=== PATIENT | male | born 1960 | race Two or more races ===

== ENCOUNTER 2017-09-29 18:12 | Emergency (ER) | payer OTHER ==
[~2017-09-29] VITALS: Ht 177.8 cm; Wt 74.4 kg
[~2017-09-29 18:12] MED LIST: ALBUPOW26; BECL0.07; FLUT50AE2
[2017-09-29 19:27] LABS: Basophils # (auto) 0.1 uL; Basophils % (auto) 1.2 % (0.0-2.0); Eosinophils # (auto) 0.1 uL; Eosinophils % (auto) 1.2 % (0.0-7.0); Hematocrit 44.7 % (41.0-53.0); Lymphocytes % (auto) 21.2 % (10.0-50.0); Mean Corpuscular Hemoglobin 30.3 pg (28.0-32.0); Mean Corpuscular Hgb Conc. 33.5 g/dL (32.0-36.0); Mean Corpuscular Volume 90.3 fL (80.0-100.0); Monocytes # (auto) 1.1 uL; Monocytes % (auto) 11.6 % (0.0-12.0); Neutrophils # (auto) 6.1 uL; Neutrophils % (auto) 64.8 % (37.0-80.0); Nucleated Red Blood Cells % 0.1 %; Platelet Count (auto) 253 10^3/uL (140-450); Red Blood Cells 4.94 10^6/uL (4.5-5.90); Red Cell Distribution Width 13.3 % (11.8-14.3); White Blood Cell 9.4 10^3/uL (4.4-10.8)
[2017-09-29 19:54] LABS: Albumin 3.5 g/dL (3.4-5.0); BUN/Creatinine Ratio 20.4; Bilirubin, Total 0.5 mg/dL (0.2-1.0); Calcium 8.8 mg/dL (8.5-10.1)
[2017-09-29 21:11] VITALS: BP 121/76
== END 2017-09-29 21:43 | disposition home or self-care (01) ==
LOC: ER 18:12
DX: R07.89 Other chest pain (principal); I10 Essential (primary) hypertension; J44.9 Chronic obstructive pulmonary disease, unspecified; F17.210 Nicotine dependence, cigarettes, uncomplicated
CPT/HCPCS: 36415; 71046; 80053; 85025; 93005

== ENCOUNTER 2018-03-08 19:09 | Emergency (ER) | payer OTHER ==
[~2018-03-08] VITALS: Ht 177.8 cm; Wt 65.8 kg
[2018-03-08 19:22] VITALS: BP 128/72
[2018-03-08 20:35] LABS: Basophils # (auto) 0.1 uL; Eosinophils # (auto) 0 uL; White Blood Cell 14.2 10^3/uL (4.4-10.8)
[2018-03-08 20:38] LABS: Basophils % (auto) 0.7 % (0.0-2.0); Eosinophils % (auto) 0.1 % (0.0-7.0); Hematocrit 35.8 % (41.0-53.0); Lymphocytes # (auto) 2.3 uL; Lymphocytes % (auto) 16.1 % (10.0-50.0); Mean Corpuscular Hemoglobin 28.5 pg (28.0-32.0); Mean Corpuscular Hgb Conc. 33.6 g/dL (32.0-36.0); Mean Corpuscular Volume 84.9 fL (80.0-100.0); Monocytes # (auto) 1.7 uL; Neutrophils # (auto) 10.1 uL; Neutrophils % (auto) 71.1 % (37.0-80.0); Platelet Count (auto) 508 10^3/uL (140-450); Red Blood Cells 4.22 10^6/uL (4.5-5.90); Red Cell Distribution Width 13.5 % (11.8-14.3)
[2018-03-08 20:50] LABS: INR 0.98 (0.9-1.15); Partial Thromboplastin Time 34.6 sec (23.78-33.04); Prothrombin Time 10.5 sec (9.27-12.13)
[2018-03-08 21:01] LABS: Alanine Aminotransferase 14 U/L (16-61); Albumin 2.4 g/dL (3.4-5.0); Alkaline Phosphatase 91 U/L (45-117); Anion Gap 10 (5-15); Aspartate Aminotransferase 21 U/L (15-37); BUN/Creatinine Ratio 8.8; Bilirubin, Total 0.7 mg/dL (0.2-1.0); Blood Urea Nitrogen 7 mg/dL (7-18); Calcium 8.1 mg/dL (8.5-10.1); Carbon Dioxide 26 mmol/L (21-32); Chloride 103 mmol/L (98-107); GFR African American 127 mL/min; GFR Non-African American 105 mL/min; Glucose 141 mg/dL (74-106); Sodium 139 mmol/L (136-145); Total Protein 7.5 g/dL (6.4-8.2)
[2018-03-08 21:08] LABS: Potassium 2.5 mmol/L (3.5-5.1)
== END 2018-03-09 01:00 | disposition left against medical advice (07) ==
LOC: ER 19:09 → EDBD 19:09 → ER 03-09 01:00
DX: R53.1 Weakness (principal); Z53.21 Procedure and treatment not carried out due to patient leaving prior to being seen by health care provider
CPT/HCPCS: 36415; 70450; 71045; 80053; 83880; 84484; 85025; 85610; 85730; 93005

== ENCOUNTER 2018-05-11 07:33 | Emergency (ER) | payer OTHER ==
[~2018-05-11] VITALS: Ht 177.8 cm; Wt 57.2 kg
[2018-05-11 08:20] LABS: Basophils # (auto) 0.1 uL; Eosinophils # (auto) 0.1 uL; Eosinophils % (auto) 0.6 % (0.0-7.0); Lymphocytes # (auto) 1.8 uL; Red Cell Distribution Width 14.9 % (11.8-14.3)
[2018-05-11 08:22] LABS: Basophils % (auto) 0.5 % (0.0-2.0); Hematocrit 33.2 % (41.0-53.0); Hemoglobin 10.7 g/dL (13.5-17.5); Lymphocytes % (auto) 15.9 % (10.0-50.0); Mean Corpuscular Hemoglobin 27.3 pg (28.0-32.0); Mean Corpuscular Hgb Conc. 32.4 g/dL (32.0-36.0); Mean Corpuscular Volume 84.3 fL (80.0-100.0); Monocytes # (auto) 1.4 uL; Neutrophils # (auto) 7.8 uL; Platelet Count (auto) 622 10^3/uL (140-450); Red Blood Cells 3.94 10^6/uL (4.5-5.90); White Blood Cell 11.1 10^3/uL (4.4-10.8)
[2018-05-11 08:30] LABS: INR 1.02 (0.9-1.15); Partial Thromboplastin Time 32.9 sec (23.78-33.04); Prothrombin Time 10.9 sec (9.27-12.13)
[2018-05-11 08:43] LABS: Alanine Aminotransferase 11 U/L (16-61); Albumin 2.2 g/dL (3.4-5.0); Alkaline Phosphatase 94 U/L (45-117); Anion Gap 6 (5-15); Aspartate Aminotransferase 25 U/L (15-37); BUN/Creatinine Ratio 12.3; Bilirubin, Total 0.6 mg/dL (0.2-1.0); Blood Urea Nitrogen 8 mg/dL (7-18); Calcium 8.1 mg/dL (8.5-10.1); Carbon Dioxide 26 mmol/L (21-32); Chloride 104 mmol/L (98-107); GFR African American 162 mL/min; GFR Non-African American 134 mL/min; Glucose 94 mg/dL (74-106); Magnesium 2.6 mg/dL (1.6-2.6); Potassium 3.8 mmol/L (3.5-5.1); Sodium 136 mmol/L (136-145); Total Protein 7.1 g/dL (6.4-8.2)
[2018-05-11 09:36] LABS: Urine WBC None Seen /hpf (0 - 3)
[2018-05-11 09:55] LABS: Urine Bacteria NONE SEEN /hpf (None Seen); Urine Blood Negative /uL (Negative); Urine Specific Gravity 1.012 (1.001-1.035)
[2018-05-11 10:02] LABS: Alcohol, Urine < 3.0 mg/dL (0-5); Amphetamine Screen, Urine NEGATIVE (NEGATIVE); Barbiturate Scree,Urine NEGATIVE (NEGATIVE); Benzodiazephine Screen, Urine NEGATIVE (NEGATIVE); Cannabinoid Screen, Urine NEGATIVE (NEGATIVE); Cocaine Screen, Urine NEGATIVE (NEGATIVE); Opiate Scree,Urine NEGATIVE (NEGATIVE); Phencyclidine Screen, Urine NEGATIVE (NEGATIVE)
[2018-05-11] MEDS ORDERED: IOHEXOL 350 MG/ML 100ML IJ ONE (15:22)
[2018-05-11 15:45] VITALS: BP 95/54
== END 2018-05-11 17:37 | disposition home or self-care (01) ==
LOC: EDBD 07:33 → ER 07:33
DX: C80.1 Malignant (primary) neoplasm, unspecified (principal); C78.02 Secondary malignant neoplasm of left lung; E43 Unspecified severe protein-calorie malnutrition; J44.9 Chronic obstructive pulmonary disease, unspecified; I10 Essential (primary) hypertension; Z87.891 Personal history of nicotine dependence; Z68.1 Body mass index [BMI] 19.9 or less, adult; Z86.19 Personal history of other infectious and parasitic diseases
CPT/HCPCS: 36415; 71046; 71275; 74176; 80053; 80307; 81001; 83735; 83880; 84484; 85025; 85610; 85730; 93005; 99285; Q9967

== ENCOUNTER 2018-05-26 18:11 | Inpatient (IN) | payer OTHER ==
[~2018-05-26] VITALS: Ht 177.8 cm; Wt 43.3 kg
[2018-05-26 19:15] LABS: Eosinophils # (auto) 0 uL; Hematocrit 34.9 % (41.0-53.0); Hemoglobin 11.3 g/dL (13.5-17.5); Monocytes # (auto) 1.4 uL; Monocytes % (auto) 8.5 % (0.0-12.0)
[2018-05-26 19:17] LABS: Basophils # (auto) 0.5 uL; Basophils % (auto) 2.9 % (0.0-2.0); Lymphocytes # (auto) 1.5 uL; Lymphocytes % (auto) 9.5 % (10.0-50.0); Mean Corpuscular Hgb Conc. 32.3 g/dL (32.0-36.0); Mean Corpuscular Volume 83.5 fL (80.0-100.0); Neutrophils % (auto) 79.1 % (37.0-80.0); Platelet Count (auto) 581 10^3/uL (140-450); Red Blood Cells 4.18 10^6/uL (4.5-5.90); Red Cell Distribution Width 15.5 % (11.8-14.3); White Blood Cell 16.4 10^3/uL (4.4-10.8)
[2018-05-26 19:22] LABS: Albumin 2.1 g/dL (3.4-5.0); Anion Gap 8 (5-15); Aspartate Aminotransferase 28 U/L (15-37); Blood Urea Nitrogen 9 mg/dL (7-18); Calcium 7.6 mg/dL (8.5-10.1); Carbon Dioxide 25 mmol/L (21-32); Chloride 102 mmol/L (98-107); GFR African American 177 mL/min; GFR Non-African American 147 mL/min; Glucose 97 mg/dL (74-106); Magnesium 1.9 mg/dL (1.6-2.6); Potassium 3.6 mmol/L (3.5-5.1); Sodium 135 mmol/L (136-145)
[2018-05-26 19:27] LABS: Alanine Aminotransferase 11 U/L (16-61); Alkaline Phosphatase 87 U/L (45-117); Bilirubin, Total 0.7 mg/dL (0.2-1.0); Total Protein 6.8 g/dL (6.4-8.2)
[2018-05-26 20:21] LABS: INR 1.04 (0.9-1.15); Partial Thromboplastin Time 33.8 sec (23.78-33.04); Prothrombin Time 11.1 sec (9.27-12.13)
[2018-05-26] MEDS ORDERED: ONDANSETRON HCL 4 MG/2 ML VIAL IV ONE (21:15)
[2018-05-26] MEDS ORDERED: MORPHINE SULF INJ 2 MG/ML SYRINGE 1ML ONE (21:16)
[2018-05-26] MEDS: MORPHINE SULF INJ 2 MG/ML SYRINGE 1ML IV ONE ×2 (21:21→21:43)
[2018-05-26] MEDS ORDERED: cefTRIAXone 1GM/10ml IVPUSH 10 ML IV ONE (21:30)
[2018-05-27] VITALS (7 sets, daily range): BP systolic 99–155; BP diastolic 58–80
[2018-05-27] MEDS ORDERED: IPRATROPIUM BROM 0.5 MG/2.5ML INH SOL NEB ONE (00:15)
[2018-05-27] MEDS ORDERED: ALBUTEROL SULF 2.5 MG/0.5ML(0.5%) NEB SOLN NEB ONE (00:15)
[2018-05-27] MEDS ORDERED: IPRATROPIUM BROM 0.5 MG/2.5ML INH SOL ONE (00:28)
[2018-05-27] MEDS ORDERED: ALBUTEROL SULF 2.5 MG/0.5ML(0.5%) NEB SOLN ONE (00:28)
[2018-05-27] MEDS ORDERED: HYDROmorphone HCL 2 MG/ML VL ONE (01:09)
[2018-05-27] MEDS: HYDROmorphone HCL 2 MG/ML VL IV PRN ×4 (01:11→19:01)
[2018-05-27] MEDS: LEVOFLOXACIN 500MG 100 ML IV SCH ×2 (01:44→21:27)
[2018-05-27] MEDS: HYDROcodone-ACET 5/325MG TAB PO PRN ×2 (03:12→20:51)
[2018-05-27] MEDS ORDERED: HYDR-4683 PO (03:48)
[2018-05-27] MEDS ORDERED: MORP60TA25 PO (03:48)
[2018-05-27 06:43] LABS: Urine Bacteria MOD /hpf (None Seen); Urine Blood 2+ /uL (Negative); Urine Specific Gravity 1.019 (1.001-1.035); Urine WBC 7 /hpf (0 - 3)
[2018-05-27] MEDS: ALBUTEROL SULF 2.5 MG/0.5ML(0.5%) NEB SOLN NEB SCH ×4 (07:08→23:37)
[2018-05-27] MEDS: IPRATROPIUM BROM 0.5 MG/2.5ML INH SOL NEB SCH ×4 (07:08→23:37)
[2018-05-27] MEDS ORDERED: TEMAZEPAM 15 MG CAP PO PRN (10:30)
[2018-05-27] MEDS: ONDANSETRON HCL 4 MG/2 ML VIAL IV PRN ×2 (13:37→19:02)
[2018-05-28] VITALS (7 sets, daily range): BP systolic 96–122; BP diastolic 58–74
[2018-05-28] MEDS: ONDANSETRON HCL 4 MG/2 ML VIAL IV PRN ×2 (00:43→17:55)
[2018-05-28] MEDS: HYDROmorphone HCL 2 MG/ML VL IV PRN ×5 (00:44→17:43)
[2018-05-28] MEDS: IPRATROPIUM BROM 0.5 MG/2.5ML INH SOL NEB SCH ×3 (06:33→19:20)
[2018-05-28] MEDS: ALBUTEROL SULF 2.5 MG/0.5ML(0.5%) NEB SOLN NEB SCH ×3 (06:34→19:20)
[2018-05-28] MEDS: HYDROcodone-ACET 5/325MG TAB PO PRN ×4 (06:45→20:23)
[2018-05-28 07:07] LABS: Basophils # (auto) 0.1 uL; Eosinophils # (auto) 0 uL; Eosinophils % (auto) 0.3 % (0.0-7.0); Hemoglobin 11.6 g/dL (13.5-17.5); Lymphocytes # (auto) 1.2 uL
[2018-05-28 07:09] LABS: Basophils % (auto) 0.4 % (0.0-2.0); Hematocrit 36.2 % (41.0-53.0); Mean Corpuscular Hgb Conc. 32.1 g/dL (32.0-36.0); Mean Corpuscular Volume 84.2 fL (80.0-100.0); Monocytes # (auto) 1.4 uL; Monocytes % (auto) 9.3 % (0.0-12.0); Neutrophils # (auto) 12.4 uL; Platelet Count (auto) 547 10^3/uL (140-450); Red Cell Distribution Width 15.3 % (11.8-14.3); White Blood Cell 15.2 10^3/uL (4.4-10.8)
[2018-05-28 07:51] LABS: BUN/Creatinine Ratio 21.5; Bilirubin, Total 0.6 mg/dL (0.2-1.0); Potassium 4.3 mmol/L (3.5-5.1); Total Protein 6.5 g/dL (6.4-8.2)
[2018-05-28] MEDS: LEVOFLOXACIN 500MG 100 ML IV SCH (22:05)
[2018-05-29] VITALS (7 sets, daily range): BP systolic 102–150; BP diastolic 61–72
[2018-05-29] MEDS: ONDANSETRON HCL 4 MG/2 ML VIAL IV PRN ×2 (00:42→06:39)
[2018-05-29] MEDS: HYDROmorphone HCL 2 MG/ML VL IV PRN ×4 (00:42→15:53)
[2018-05-29] MEDS: IPRATROPIUM BROM 0.5 MG/2.5ML INH SOL NEB SCH ×3 (07:03→18:05)
[2018-05-29] MEDS: ALBUTEROL SULF 2.5 MG/0.5ML(0.5%) NEB SOLN NEB SCH ×3 (07:03→18:05)
[2018-05-29 07:12] LABS: Basophils # (auto) 0.1 uL; Eosinophils # (auto) 0.1 uL; Hemoglobin 11.5 g/dL (13.5-17.5); Neutrophils # (auto) 10.1 uL
[2018-05-29 07:15] LABS: Basophils % (auto) 0.6 % (0.0-2.0); Eosinophils % (auto) 0.6 % (0.0-7.0); Hematocrit 34.2 % (41.0-53.0); Lymphocytes # (auto) 1.5 uL; Lymphocytes % (auto) 11.9 % (10.0-50.0); Mean Corpuscular Hemoglobin 27.8 pg (28.0-32.0); Mean Corpuscular Hgb Conc. 33.4 g/dL (32.0-36.0); Mean Corpuscular Volume 83.2 fL (80.0-100.0); Monocytes % (auto) 8.1 % (0.0-12.0); Neutrophils % (auto) 78.8 % (37.0-80.0); Platelet Count (auto) 570 10^3/uL (140-450); Red Blood Cells 4.11 10^6/uL (4.5-5.90); Red Cell Distribution Width 15.2 % (11.8-14.3); White Blood Cell 12.7 10^3/uL (4.4-10.8)
[2018-05-29 07:25] LABS: Calcium 8.2 mg/dL (8.5-10.1); Potassium 4.2 mmol/L (3.5-5.1)
[2018-05-29] MEDS: HYDROcodone-ACET 5/325MG TAB PO PRN (09:51)
[2018-05-29] MEDS: MORPHINE SULF 30 mg ER tab PO SCH ×2 (15:53→21:49)
[2018-05-29] MEDS: LEVOFLOXACIN 500MG 100 ML IV SCH (21:48)
[2018-05-30] VITALS (7 sets, daily range): BP systolic 92–121; BP diastolic 51–68
[2018-05-30] MEDS: IPRATROPIUM BROM 0.5 MG/2.5ML INH SOL NEB SCH ×4 (00:03→18:31)
[2018-05-30] MEDS: ALBUTEROL SULF 2.5 MG/0.5ML(0.5%) NEB SOLN NEB SCH ×4 (00:03→18:31)
[2018-05-30] MEDS: HYDROmorphone HCL 2 MG/ML VL IV PRN ×3 (00:44→16:51)
[2018-05-30] MEDS: HYDROcodone-ACET 5/325MG TAB PO PRN (04:03)
[2018-05-30 07:04] LABS: Eosinophils # (auto) 0.1 uL; Monocytes # (auto) 1.4 uL
[2018-05-30 07:06] LABS: Basophils # (auto) 0.6 uL; Basophils % (auto) 4.1 % (0.0-2.0); Eosinophils % (auto) 0.5 % (0.0-7.0); Hematocrit 32.5 % (41.0-53.0); Hemoglobin 10.7 g/dL (13.5-17.5); Lymphocytes # (auto) 1.7 uL; Lymphocytes % (auto) 12.2 % (10.0-50.0); Mean Corpuscular Hemoglobin 27.5 pg (28.0-32.0); Mean Corpuscular Hgb Conc. 33.1 g/dL (32.0-36.0); Mean Corpuscular Volume 83.1 fL (80.0-100.0); Monocytes % (auto) 10.2 % (0.0-12.0); Neutrophils # (auto) 10.3 uL; Platelet Count (auto) 576 10^3/uL (140-450); Red Blood Cells 3.91 10^6/uL (4.5-5.90); Red Cell Distribution Width 15.2 % (11.8-14.3); White Blood Cell 14.1 10^3/uL (4.4-10.8)
[2018-05-30 07:25] LABS: Albumin 1.9 g/dL (3.4-5.0); Calcium 7.8 mg/dL (8.5-10.1)
[2018-05-30 07:27] LABS: BUN/Creatinine Ratio 18.8
[2018-05-30 07:29] LABS: Bilirubin, Total 0.5 mg/dL (0.2-1.0); Total Protein 6.5 g/dL (6.4-8.2)
[2018-05-30] MEDS: MORPHINE SULF 30 mg ER tab PO SCH ×2 (10:48→22:11)
[2018-05-30] MEDS ORDERED: Pro-Stat SF 30ml Vanilla PO SCH (22:00)
[2018-05-30] MEDS: LEVOFLOXACIN 500MG 100 ML IV SCH (22:06)
[2018-05-30] MEDS: Ensure Enlive Chocolate 8oz Bottle PO SCH (22:10)
[2018-05-31] MEDS: HYDROmorphone HCL 2 MG/ML VL IV PRN ×4 (00:24→14:55)
[2018-05-31] MEDS: ONDANSETRON HCL 4 MG/2 ML VIAL IV PRN (01:05)
[2018-05-31 05:00] VITALS: BP 107/70
[2018-05-31] MEDS: IPRATROPIUM BROM 0.5 MG/2.5ML INH SOL NEB SCH ×5 (05:51→21:50)
[2018-05-31] MEDS: ALBUTEROL SULF 2.5 MG/0.5ML(0.5%) NEB SOLN NEB SCH ×5 (05:51→21:50)
[2018-05-31 06:50] LABS: Basophils # (auto) 0.1 uL; Eosinophils # (auto) 0.1 uL; Eosinophils % (auto) 0.5 % (0.0-7.0)
[2018-05-31 06:54] LABS: Basophils % (auto) 0.9 % (0.0-2.0); Hematocrit 35.1 % (41.0-53.0); Hemoglobin 11.4 g/dL (13.5-17.5); Lymphocytes # (auto) 2.1 uL; Lymphocytes % (auto) 14.9 % (10.0-50.0); Mean Corpuscular Hemoglobin 27.1 pg (28.0-32.0); Mean Corpuscular Hgb Conc. 32.5 g/dL (32.0-36.0); Mean Corpuscular Volume 83.5 fL (80.0-100.0); Monocytes # (auto) 1.5 uL; Monocytes % (auto) 10.6 % (0.0-12.0); Neutrophils # (auto) 10.5 uL; Neutrophils % (auto) 73.1 % (37.0-80.0); Platelet Count (auto) 593 10^3/uL (140-450); Red Cell Distribution Width 15.5 % (11.8-14.3); White Blood Cell 14.4 10^3/uL (4.4-10.8)
[2018-05-31 07:03] LABS: INR 1.02 (0.9-1.15); Prothrombin Time 10.9 sec (9.27-12.13)
[2018-05-31 07:13] LABS: BUN/Creatinine Ratio 24.2; Bilirubin, Total 0.6 mg/dL (0.2-1.0); Calcium 8.4 mg/dL (8.5-10.1); Potassium 4.3 mmol/L (3.5-5.1)
[2018-05-31 09:00] VITALS: BP 91/55
[2018-05-31] MEDS: Ensure Enlive Chocolate 8oz Bottle PO SCH ×3 (09:47→18:00)
[2018-05-31] MEDS: MORPHINE SULF 30 mg ER tab PO SCH ×2 (10:54→21:15)
[2018-05-31] MEDS: Pro-Stat SF 30ml Vanilla PO SCH ×2 (11:00→18:00)
[2018-05-31 13:07] VITALS: BP 89/55
[2018-05-31 16:43] VITALS: BP 99/62
[2018-05-31 20:00] VITALS: BP 136/50
[2018-05-31] MEDS: LEVOFLOXACIN 500MG 100 ML IV SCH (21:20)
[2018-05-31 22:00] VITALS: BP 115/53
[2018-06-01] VITALS (7 sets, daily range): BP systolic 84–109; BP diastolic 47–71
[2018-06-01] MEDS: HYDROmorphone HCL 2 MG/ML VL IV PRN ×4 (00:51→18:00)
[2018-06-01] MEDS: ALBUTEROL SULF 2.5 MG/0.5ML(0.5%) NEB SOLN NEB SCH ×3 (06:17→19:15)
[2018-06-01] MEDS: IPRATROPIUM BROM 0.5 MG/2.5ML INH SOL NEB SCH ×3 (06:17→19:15)
[2018-06-01 07:04] LABS: Basophils # (auto) 0.2 uL; Eosinophils # (auto) 0.1 uL
[2018-06-01 07:12] LABS: Basophils % (auto) 1.2 % (0.0-2.0); Eosinophils % (auto) 0.6 % (0.0-7.0); Hemoglobin 11.1 g/dL (13.5-17.5); Lymphocytes # (auto) 2.2 uL; Lymphocytes % (auto) 15.2 % (10.0-50.0); Mean Corpuscular Hemoglobin 27.1 pg (28.0-32.0); Mean Corpuscular Hgb Conc. 32.8 g/dL (32.0-36.0); Mean Corpuscular Volume 82.8 fL (80.0-100.0); Monocytes # (auto) 1.4 uL; Monocytes % (auto) 9.5 % (0.0-12.0); Neutrophils # (auto) 10.9 uL; Neutrophils % (auto) 73.5 % (37.0-80.0); Nucleated Red Blood Cells % 0.1 %; Platelet Count (auto) 600 10^3/uL (140-450); Red Blood Cells 4.11 10^6/uL (4.5-5.90); Red Cell Distribution Width 15.2 % (11.8-14.3); White Blood Cell 14.8 10^3/uL (4.4-10.8)
[2018-06-01 07:25] LABS: Albumin 2.1 g/dL (3.4-5.0); BUN/Creatinine Ratio 27.3; Bilirubin, Total 0.5 mg/dL (0.2-1.0); Calcium 8.3 mg/dL (8.5-10.1); Potassium 4.5 mmol/L (3.5-5.1); Total Protein 6.8 g/dL (6.4-8.2)
[2018-06-01] MEDS: Ensure Enlive Chocolate 8oz Bottle PO SCH ×3 (08:00→20:28)
[2018-06-01] MEDS: Pro-Stat SF 30ml Vanilla PO SCH ×2 (08:00→20:29)
[2018-06-01] MEDS: AZITHROMYCIN 250 MG TAB PO SCH (10:06)
[2018-06-01] MEDS: MORPHINE SULF 30 mg ER tab PO SCH ×2 (10:06→21:13)
[2018-06-01] MEDS: ONDANSETRON HCL 4 MG/2 ML VIAL IV PRN (11:54)
[2018-06-01] MEDS: DOCUSATE SOD 100 MG CAP PO PRN (11:54)
[2018-06-01] MEDS: ACETAMINOPHEN 500 MG TAB PO PRN (14:48)
[2018-06-01] MEDS: LEVOFLOXACIN 500MG 100 ML IV SCH (21:13)
[2018-06-02] MEDS: HYDROmorphone HCL 2 MG/ML VL IV PRN ×3 (02:52→16:41)
[2018-06-02 05:00] VITALS: BP 88/52
[2018-06-02] MEDS: ALBUTEROL SULF 2.5 MG/0.5ML(0.5%) NEB SOLN NEB SCH ×4 (06:20→18:42)
[2018-06-02] MEDS: IPRATROPIUM BROM 0.5 MG/2.5ML INH SOL NEB SCH ×4 (06:20→18:42)
[2018-06-02 06:21] LABS: Basophils # (auto) 0.1 uL; White Blood Cell 13.7 10^3/uL (4.4-10.8)
[2018-06-02 06:23] LABS: Basophils % (auto) 0.9 % (0.0-2.0); Eosinophils # (auto) 0.2 uL; Eosinophils % (auto) 1.1 % (0.0-7.0); Hematocrit 31.7 % (41.0-53.0); Hemoglobin 10.7 g/dL (13.5-17.5); Lymphocytes # (auto) 1.9 uL; Lymphocytes % (auto) 13.7 % (10.0-50.0); Mean Corpuscular Hemoglobin 28.1 pg (28.0-32.0); Mean Corpuscular Hgb Conc. 33.9 g/dL (32.0-36.0); Monocytes # (auto) 1.5 uL; Monocytes % (auto) 10.8 % (0.0-12.0); Neutrophils # (auto) 10.1 uL; Neutrophils % (auto) 73.5 % (37.0-80.0); Platelet Count (auto) 611 10^3/uL (140-450); Red Blood Cells 3.81 10^6/uL (4.5-5.90)
[2018-06-02 06:33] LABS: Albumin 1.9 g/dL (3.4-5.0); BUN/Creatinine Ratio 30.5; Calcium 8.1 mg/dL (8.5-10.1)
[2018-06-02 06:46] LABS: Bilirubin, Total 0.4 mg/dL (0.2-1.0); Total Protein 6.6 g/dL (6.4-8.2)
[2018-06-02] MEDS: Ensure Enlive Chocolate 8oz Bottle PO SCH ×3 (08:00→21:06)
[2018-06-02] MEDS: Pro-Stat SF 30ml Vanilla PO SCH ×2 (08:00→21:07)
[2018-06-02 09:00] VITALS: BP 105/56
[2018-06-02] MEDS: AZITHROMYCIN 250 MG TAB PO SCH (10:37)
[2018-06-02] MEDS: MORPHINE SULF 30 mg ER tab PO SCH ×2 (10:38→21:25)
[2018-06-02 13:00] VITALS: BP 104/64
[2018-06-02 17:00] VITALS: BP 114/47
[2018-06-02 20:00] VITALS: BP 93/47
[2018-06-02] MEDS: LEVOFLOXACIN 500MG 100 ML IV SCH (21:25)
[2018-06-02 22:00] VITALS: BP 107/64
[2018-06-03] VITALS (7 sets, daily range): BP systolic 85–107; BP diastolic 55–74
[2018-06-03] MEDS: ALBUTEROL SULF 2.5 MG/0.5ML(0.5%) NEB SOLN NEB SCH ×4 (02:16→19:45)
[2018-06-03] MEDS: IPRATROPIUM BROM 0.5 MG/2.5ML INH SOL NEB SCH ×4 (02:16→19:45)
[2018-06-03] MEDS: HYDROmorphone HCL 2 MG/ML VL IV PRN ×4 (04:07→22:22)
[2018-06-03] MEDS: ACETAMINOPHEN 500 MG TAB PO PRN (06:20)
[2018-06-03] MEDS: Pro-Stat SF 30ml Vanilla PO SCH ×2 (08:00→18:07)
[2018-06-03] MEDS: Ensure Enlive Chocolate 8oz Bottle PO SCH ×3 (09:58→18:07)
[2018-06-03] MEDS: MORPHINE SULF 30 mg ER tab PO SCH ×2 (10:59→22:21)
[2018-06-03] MEDS: AZITHROMYCIN 250 MG TAB PO SCH (10:59)
[2018-06-03] MEDS: DOCUSATE SOD 100 MG CAP PO PRN (17:18)
[2018-06-03] MEDS: LEVOFLOXACIN 500MG 100 ML IV SCH (22:21)
[2018-06-04] VITALS (7 sets, daily range): BP systolic 82–97; BP diastolic 43–61
[2018-06-04] MEDS: HYDROmorphone HCL 2 MG/ML VL IV PRN ×2 (04:45→08:58)
[2018-06-04] MEDS: ALBUTEROL SULF 2.5 MG/0.5ML(0.5%) NEB SOLN NEB SCH ×3 (06:30→18:14)
[2018-06-04] MEDS: IPRATROPIUM BROM 0.5 MG/2.5ML INH SOL NEB SCH ×3 (06:30→18:14)
[2018-06-04 06:55] LABS: Basophils # (auto) 0.4 uL; Eosinophils # (auto) 0.1 uL; Hemoglobin 11.8 g/dL (13.5-17.5)
[2018-06-04 06:58] LABS: Basophils % (auto) 2.4 % (0.0-2.0); Eosinophils % (auto) 0.6 % (0.0-7.0); Hematocrit 36.6 % (41.0-53.0); Lymphocytes # (auto) 2.2 uL; Lymphocytes % (auto) 13.5 % (10.0-50.0); Mean Corpuscular Hemoglobin 26.9 pg (28.0-32.0); Mean Corpuscular Hgb Conc. 32.3 g/dL (32.0-36.0); Mean Corpuscular Volume 83.2 fL (80.0-100.0); Monocytes # (auto) 1.6 uL; Neutrophils # (auto) 12.2 uL; Neutrophils % (auto) 73.5 % (37.0-80.0); Platelet Count (auto) 671 10^3/uL (140-450); Red Cell Distribution Width 15.2 % (11.8-14.3); White Blood Cell 16.5 10^3/uL (4.4-10.8)
[2018-06-04 07:10] LABS: Albumin 2.2 g/dL (3.4-5.0); Calcium 8.4 mg/dL (8.5-10.1); Potassium 4.9 mmol/L (3.5-5.1)
[2018-06-04 07:11] LABS: BUN/Creatinine Ratio 22.5
[2018-06-04 07:14] LABS: Bilirubin, Total 0.6 mg/dL (0.2-1.0); Total Protein 7.8 g/dL (6.4-8.2)
[2018-06-04] MEDS: Ensure Enlive Chocolate 8oz Bottle PO SCH ×3 (08:00→18:28)
[2018-06-04] MEDS: Pro-Stat SF 30ml Vanilla PO SCH ×2 (08:00→18:28)
[2018-06-04] MEDS: AZITHROMYCIN 250 MG TAB PO SCH (10:19)
[2018-06-04] MEDS: MORPHINE SULF 30 mg ER tab PO SCH ×2 (10:19→22:02)
[2018-06-04] MEDS ORDERED: fentaNYL CITRATE 100 MCG/2 ML VL ONE (12:56)
[2018-06-04] MEDS ORDERED: MIDAZOLAM HCL 1MG/1ML-2 ML VIAL ONE (12:56)
[2018-06-04] MEDS: HYDROcodone-ACET 10/325MG TAB PO PRN ×2 (13:00→22:03)
[2018-06-04] MEDS ORDERED: LIDOCAINE 2% (LOCAL ANESTH.) PF 5ml SDV ONE (13:16)
[2018-06-04 16:08] LABS: % Iron Saturation 10.5 % (20-55)
[2018-06-04] MEDS: LEVOFLOXACIN 500MG 100 ML IV SCH (22:03)
[2018-06-05] VITALS (7 sets, daily range): BP systolic 95–130; BP diastolic 50–80
[2018-06-05] MEDS: HYDROmorphone HCL 2 MG/ML VL IV PRN ×2 (00:47→16:46)
[2018-06-05] MEDS: HYDROcodone-ACET 10/325MG TAB PO PRN ×2 (04:43→19:47)
[2018-06-05 07:13] LABS: Basophils # (auto) 0.1 uL; Basophils % (auto) 0.9 % (0.0-2.0); Eosinophils # (auto) 0.1 uL; Eosinophils % (auto) 0.5 % (0.0-7.0); Hematocrit 38.8 % (41.0-53.0); Hemoglobin 12.7 g/dL (13.5-17.5); Lymphocytes # (auto) 1.9 uL; Lymphocytes % (auto) 14.2 % (10.0-50.0); Mean Corpuscular Hemoglobin 27.3 pg (28.0-32.0); Mean Corpuscular Hgb Conc. 32.8 g/dL (32.0-36.0); Mean Corpuscular Volume 83.2 fL (80.0-100.0); Monocytes # (auto) 1.5 uL; Monocytes % (auto) 10.6 % (0.0-12.0); Neutrophils # (auto) 10.1 uL; Neutrophils % (auto) 73.8 % (37.0-80.0); Nucleated Red Blood Cells % 0.1 %; Platelet Count (auto) 726 10^3/uL (140-450); Red Blood Cells 4.66 10^6/uL (4.5-5.90); Red Cell Distribution Width 15.1 % (11.8-14.3); White Blood Cell 13.7 10^3/uL (4.4-10.8)
[2018-06-05] MEDS: IPRATROPIUM BROM 0.5 MG/2.5ML INH SOL NEB SCH ×4 (07:28→18:53)
[2018-06-05] MEDS: ALBUTEROL SULF 2.5 MG/0.5ML(0.5%) NEB SOLN NEB SCH ×4 (07:28→18:53)
[2018-06-05 07:36] LABS: Albumin 2.4 g/dL (3.4-5.0); Bilirubin, Total 0.6 mg/dL (0.2-1.0); Calcium 8.9 mg/dL (8.5-10.1); Potassium 4.1 mmol/L (3.5-5.1); Total Protein 8.2 g/dL (6.4-8.2)
[2018-06-05] MEDS: Pro-Stat SF 30ml Vanilla PO SCH ×2 (08:00→18:11)
[2018-06-05] MEDS: Ensure Enlive Chocolate 8oz Bottle PO SCH ×3 (08:00→18:11)
[2018-06-05] MEDS: AZITHROMYCIN 250 MG TAB PO SCH (10:36)
[2018-06-05] MEDS: MORPHINE SULF 30 mg ER tab PO SCH ×2 (10:37→21:34)
[2018-06-05] MEDS: LEVOFLOXACIN 500MG 100 ML IV SCH (21:34)
[2018-06-06] MEDS: ALBUTEROL SULF 2.5 MG/0.5ML(0.5%) NEB SOLN NEB SCH ×4 (00:25→19:25)
[2018-06-06] MEDS: IPRATROPIUM BROM 0.5 MG/2.5ML INH SOL NEB SCH ×4 (00:25→19:25)
[2018-06-06] MEDS: HYDROmorphone HCL 2 MG/ML VL IV PRN ×4 (01:28→23:50)
[2018-06-06 05:00] VITALS: BP 105/69
[2018-06-06 09:00] VITALS: BP 111/59
[2018-06-06] MEDS: Ensure Enlive Chocolate 8oz Bottle PO SCH ×3 (10:34→18:02)
[2018-06-06] MEDS: Pro-Stat SF 30ml Vanilla PO SCH ×2 (10:35→18:02)
[2018-06-06] MEDS: AZITHROMYCIN 250 MG TAB PO SCH (10:36)
[2018-06-06] MEDS: MORPHINE SULF 30 mg ER tab PO SCH ×2 (10:36→22:24)
[2018-06-06] MEDS: DOCUSATE SOD 100 MG CAP PO PRN ×2 (10:44→15:18)
[2018-06-06] MEDS: SODIUM FERR GLUC 62.5MG/5ML 125 MG in SODIUM CHL 0.9% 100 ML IV SCH (11:51)
[2018-06-06 12:39] VITALS: BP 97/58
[2018-06-06] MEDS: HYDROcodone-ACET 10/325MG TAB PO PRN ×3 (12:45→23:50)
[2018-06-06 17:00] VITALS: BP 87/63
[2018-06-06 22:00] VITALS: BP 107/76
[2018-06-06] MEDS: LEVOFLOXACIN 500MG 100 ML IV SCH (22:23)
[2018-06-07] MEDS: HYDROmorphone HCL 2 MG/ML VL IV PRN ×3 (03:41→21:17)
[2018-06-07 05:00] VITALS: BP 112/69
[2018-06-07] MEDS: IPRATROPIUM BROM 0.5 MG/2.5ML INH SOL NEB SCH ×4 (06:05→18:00)
[2018-06-07] MEDS: ALBUTEROL SULF 2.5 MG/0.5ML(0.5%) NEB SOLN NEB SCH ×4 (06:05→18:00)
[2018-06-07] MEDS: Ensure Enlive Chocolate 8oz Bottle PO SCH ×3 (08:59→18:01)
[2018-06-07 09:00] VITALS: BP 85/58
[2018-06-07] MEDS: Pro-Stat SF 30ml Vanilla PO SCH ×2 (09:00→18:01)
[2018-06-07] MEDS: MORPHINE SULF 30 mg ER tab PO SCH ×2 (09:00→22:54)
[2018-06-07] MEDS: AZITHROMYCIN 250 MG TAB PO SCH (09:00)
[2018-06-07] MEDS: DOCUSATE SOD 100 MG CAP PO PRN (09:35)
[2018-06-07 12:46] VITALS: BP 84/54
[2018-06-07] MEDS: SODIUM FERR GLUC 62.5MG/5ML 125 MG in SODIUM CHL 0.9% 100 ML IV SCH (13:04)
[2018-06-07 17:00] VITALS: BP 95/55
[2018-06-07] MEDS: HYDROcodone-ACET 10/325MG TAB PO PRN (18:50)
[2018-06-07 19:29] VITALS: BP 95/55
[2018-06-07 22:00] VITALS: BP 109/70
[2018-06-07] MEDS: LEVOFLOXACIN 500MG 100 ML IV SCH (22:54)
[2018-06-08] MEDS: HYDROcodone-ACET 10/325MG TAB PO PRN ×2 (00:55→14:00)
[2018-06-08] MEDS: HYDROmorphone HCL 2 MG/ML VL IV PRN ×2 (03:30→07:16)
[2018-06-08 05:00] VITALS: BP 100/74
[2018-06-08] MEDS: ALBUTEROL SULF 2.5 MG/0.5ML(0.5%) NEB SOLN NEB SCH ×3 (06:30→12:13)
[2018-06-08] MEDS: IPRATROPIUM BROM 0.5 MG/2.5ML INH SOL NEB SCH ×3 (06:30→12:13)
[2018-06-08] MEDS: Pro-Stat SF 30ml Vanilla PO SCH (08:00)
[2018-06-08] MEDS: Ensure Enlive Chocolate 8oz Bottle PO SCH ×2 (08:00→12:00)
[2018-06-08 08:14] VITALS: BP 94/54
[2018-06-08 08:30] VITALS: BP 94/54
[2018-06-08] MEDS: MORPHINE SULF 30 mg ER tab PO SCH (09:27)
[2018-06-08] MEDS: AZITHROMYCIN 250 MG TAB PO SCH (09:27)
[2018-06-08] MEDS ORDERED: FLEET ENEMA(ADULT) 135 ML PR ONE (10:00)
[2018-06-08] MEDS: SODIUM FERR GLUC 62.5MG/5ML 125 MG in SODIUM CHL 0.9% 100 ML IV SCH (13:51)
[2018-06-08 13:55] VITALS: BP 113/77
[2018-06-08 16:56] VITALS: BP 97/54
[2018-06-08 17:35] VITALS: BP 97/54
== END 2018-06-08 18:35 | disposition hospice, home (50) | DRG 136 ==
LOC: EDBD 18:11 → ER 18:19 → TELE 18:20 → TELE-EAST 05-27 02:33
PROVIDERS: ADMIT Nurse Practitioner Family; ATTEND Internal Medicine
PROC: 0BBL3ZX Excision of Left Lung, Percutaneous Approach, Diagnostic (ICD-10-PCS; principal; 2018-06-04)
DX: C78.00 Secondary malignant neoplasm of unspecified lung (principal); J18.9 Pneumonia, unspecified organism; C22.9 Malignant neoplasm of liver, not specified as primary or secondary; E44.0 Moderate protein-calorie malnutrition; Z99.81 Dependence on supplemental oxygen; J44.0 Chronic obstructive pulmonary disease with (acute) lower respiratory infection; K74.60 Unspecified cirrhosis of liver; D64.9 Anemia, unspecified; B19.20 Unspecified viral hepatitis C without hepatic coma; J44.1 Chronic obstructive pulmonary disease with (acute) exacerbation; E78.5 Hyperlipidemia, unspecified; F11.10 Opioid abuse, uncomplicated; F17.210 Nicotine dependence, cigarettes, uncomplicated; H54.61 Unqualified visual loss, right eye, normal vision left eye; I10 Essential (primary) hypertension; K59.00 Constipation, unspecified; Z51.5 Encounter for palliative care; Z83.3 Family history of diabetes mellitus; Z66 Do not resuscitate; Z68.24 Body mass index [BMI] 24.0-24.9, adult
CPT/HCPCS: 10022; 36415; 71045; 71250; 76942; 80048; 80053; 81001; 83540; 83550; 83735; 83880; 84484; 85025; 85610; 85730; 87040; 87070; 87081; 87086; 87205; 93005; 94640; 96374; 96375; J0696; J1956; J2001; J2250; J2405